=== PATIENT | female | born 1960 | race Caucasian/White ===

== ENCOUNTER → 2017-12-04 | Outpatient (CLI) | payer OTHER | END | disposition home or self-care (01) | LOC: KCIC 07:49 | DX: K21.9 Gastro-esophageal reflux disease without esophagitis (principal); K22.4 Dyskinesia of esophagus | CPT/HCPCS: 74220 ==

== ENCOUNTER → 2020-01-13 | Outpatient (CLI) | payer MEDICAID ==
[2016-08-08 12:10] VITALS: BP 123/71
[~2020-01-13] MED LIST: AMLO10TA8 PO; AMLO5TAB10 PO; CETI10TA24 PO; CHOL10003 PO; HYDR-3164 PO; LISI-130 PO; LOVA20TA2 PO; METO-239 PO; METO50TA6 PO; OXYC1TAB15 PO; PRED20TA PO; PROM25AM6 PO
--- NOTE | 2020-01-13 15:16 | RAD ---
Examination: PELVIS W/TV History: Reason: Endometrial thickening on US per order / Spl. Instructions: / History: Comparison/Correlation: None Findings: Transabdominal and transvaginal pelvic ultrasound exam was performed. Transvaginal technique was utilized to better assess the adnexal structures. Uterus measures 8.9 cm x 5.9 cm x 3.6 cm. Echogenic ovoid mass of the anterior aspect of the uterus measuring 1.8 cm diameter probably representing an echogenic fibroid is present. There is a cystic structure in the uterine fundal level measuring 1.3 cm diameter. Endometrium is thickened and heterogeneous measuring up to 1.3 cm in thickness. Cystic component of the endometrium inferiorly measuring 0.4 cm diameter appears to be present. Right ovary measures 1.6 cm x 1.2 cm x 1 cm. Left ovary measures 2.5 cm x 2 cm x 1.0 cm. Left ovarian cyst measuring 1.2 cm diameter is cirrhotic in appearance. Normal ovarian flow is present bilaterally. Impression: Thickened, heterogeneous endometrium. Correlate for underlying endometrial hyperplasia. Neoplastic involvement is not necessarily excluded. Fibroid involvement of the uterus. Electronically signed by: Epi Sims MD (01/13/2020 3:13 PM) [id number]
== END | disposition home or self-care (01) ==
LOC: US 15:27
PROVIDERS: ATTEND Family Medicine
DX: R93.89 Abnormal findings on diagnostic imaging of other specified body structures (principal); N83.292 Other ovarian cyst, left side; N83.8 Other noninflammatory disorders of ovary, fallopian tube and broad ligament; N85.8 Other specified noninflammatory disorders of uterus
CPT/HCPCS: 76830; 76856